=== PATIENT | male | born 1990 | race Caucasian/White ===

== ENCOUNTER 2018-02-05 11:46 | Emergency (ER) | payer OTHER ==
[2018-02-05] MEDS: HYDROCODONE/APAP (5/325) TAB PO (13:11)
[2018-02-05] MEDS: ACETAMINOPHEN 325 MG TAB PO (13:22)
== END 2018-02-05 14:49 | disposition home or self-care (01) ==
LOC: FTE 14:49
DX: S06.0X0A Concussion without loss of consciousness, initial encounter (principal); S20.20XA Contusion of thorax, unspecified, initial encounter; M62.838 Other muscle spasm; R07.9 Chest pain, unspecified; V89.2XXA Person injured in unspecified motor-vehicle accident, traffic, initial encounter
CPT/HCPCS: 70450; 71046; 72125; 99285-25